=== PATIENT | male | born 1995 | race Caucasian/White ===

== ENCOUNTER 2017-08-18 21:29 | Emergency (ER) | payer OTHER ==
[~2017-08-18] VITALS: Ht 177.8 cm; Wt 86.2 kg
[2017-08-18] MEDS ORDERED: ECHINACEA80 MG (22:00)
[2017-08-18] MEDS ORDERED: GARLIC1 EACH PO (22:01)
[2017-08-18] MEDS ORDERED: TYLENOL EXTRA500 MG PO (22:01)
[2017-08-18] MEDS ORDERED: OSELB75 PO (22:49)
== END 2017-08-18 23:20 | disposition home or self-care (01) ==
LOC: ER 21:29
DX: J11.1 Influenza due to unidentified influenza virus with other respiratory manifestations (principal)